=== PATIENT | male | born 1970 | race Caucasian/White ===

== ENCOUNTER 2016-10-21 12:40 | Emergency (ER) | payer MEDICAID ==
--- NOTE | 2016-10-21 12:58 | Emergency Department Record ---
History of Present Illness - General Chief complaint: Extremity Problem Stated complaint: RT THUMB/WRIST PAIN Time Seen by Provider: 10/21/16 12:55 Source: Patient Mode of Arrival: Ambulatory Limitations: No limitations - History of Present Illness Initial comments: 46 yo male presents with right thumb pain. He tripped over bricks his neighbor had placed in his yard. He thinks it bent back with the fall. He has pain with ROM and weight bearing. No redness or fevers. He is right handed Onset/Timin -: Week(s) Location: Right, Hand History of Same: No Severity scale (1-10): 8 Quality: Sharp Consistency: Intermittent Improves with: Immobilization, Rest Worsens with: Exertion Associated Symptoms: Denies other symptoms - Related Data Home Medications Medication Instructions Recorded Confirmed Last Taken Atorvastatin Calcium 40 mg PO QD tab 04/28/16 10/21/16 10/21/16 Carvedilol 6.25 mg PO BID tab 04/28/16 10/21/16 10/21/16 Previous Rx's Medication Instructions Recorded Furosemide [Lasix] 20 mg PO DAILY #90 tablet 05/10/16 Allergies Allergy/AdvReac Type Severity Reaction Status Date / Time Penicillins Allergy hives Verified 10/21/16 12:43 Travel Screening - Travel/Exposure Within Last 30 Days Have you traveled within the last 30 days?: No - Travel/Exposure Within Last Year Have you traveled outside the [place] in the last year?: No - Additonal Travel Details Have you been exposed to anyone with a communicable illness?: No - Travel Symptoms Symptom Screening: None Review of Systems Constitutional: Denies: Chills, Fever, Malaise Eyes: Denies: Eye discharge, Eye pain ENT: Denies: Congestion, Throat pain Respiratory: Denies: Cough Cardiovascular: Denies: Chest pain, Palpitations, Syncope Endocrine: Denies: Fatigue Gastrointestinal: Denies: Abdominal pain, Diarrhea, Nausea, Vomiting Genitourinary: Denies: Dysuria, Frequency Musculoskeletal: Reports: As per HPI, Arthralgia Skin: Denies: Bruising, Change in color, Rash Neurological: Denies: Headache Psychiatric: Denies: Anxiety Hematological/Lymphatic: Denies: Blood Clots, Easy bleeding, Easy bruising, Swollen glands Past Medical History - SOCIAL HISTORY Smoking Status: Never smoker Alcohol Use: None Drug Use: None - RESPIRATORY Hx Respiratory Disorders: No - CARDIOVASCULAR Hx Cardio Disorders: Yes Hx CHF: Yes Hx Hypertension: Yes Comment:: Cardiac myopathy - NEURO Hx Neuro Disorders: No - GI Hx GI Disorders: No - Hx Genitourinary Disorders: No - ENDOCRINE Hx Endocrine Disorders: Yes Hx Diabetes: Yes - MUSCULOSKELETAL Hx Musculoskeletal Disorders: No - PSYCH Hx Psych Problems: No - HEMATOLOGY/ONCOLOGY Hx Hematology/Oncology Disorders: No Family Medical History Any Significant Family History?: Yes Hx Diabetes: Mother Hx Heart Disease: Mother Hx Stroke: Mother Physical Exam - General General Appearance: Alert, Oriented x3, Cooperative, No acute distress Limitations: No limitations - Head Head exam: Atraumatic, Normocephalic, Normal inspection - Eye Eye exam: Normal appearance. negative: Conjunctival injection, Periorbital swelling - ENT ENT exam: Normal exam - Neck Neck exam: Normal inspection, Full ROM. negative: Tenderness - Respiratory Respiratory exam: Normal lung sounds bilaterally. negative: Respiratory distress - Cardiovascular Cardiovascular Exam: Regular rate, Normal rhythm, Normal heart sounds Peripheral Pulses: 2+: Radial (R) - Rectal Rectal exam: Deferred - exam: Deferred - Extremities Extremities exam: Normal inspection, Full ROM, Normal capillary refill, Tenderness Image of Hand: 1 - normal inspection, full ROM, tender proximal thumb and distal radius - Back Back exam: Denies: CVA tenderness (R), CVA tenderness (L), Muscle spasm, Paraspinal tenderness, Tenderness, Vertebral tenderness - Neurological Neurological exam: Alert, Normal gait, Oriented X3. negative: Motor sensory deficit - Psychiatric Psychiatric exam: Normal affect, Normal mood - Skin Skin exam: Dry, Intact, Normal color, Warm Course Vital Signs 10/21/16 12:50 Temperature 97.9 F Pulse Rate 61 Respiratory 20 Rate Blood Pressure 134/75 Pulse Ox 98 - Reevaluation(s) Reevaluation #1: XR ordered of the right hand for the pain after a fall about 10 days ago. 10/21/16 13:02 Reevaluation #2: The XR was read as no acute fracture or acute process He will be splinted and referred to his PCP for recheck 10/21/16 13:38 Disposition Disposition: Discharge Clinical Impression: Sprain of thumb Qualifiers: Encounter type: initial encounter Sprain of finger site: unspecified site Laterality: right Qualified Code(s): S63.601A - Unspecified sprain of right thumb, initial encounter Disposition: Home, Self-Care Condition: (1) Good Instructions: Finger Sprain (ED) Additional Instructions: Use the splint for support and comfort You will need to recheck with your doctor this week Forms: Patient Portal Access Time of Disposition: 13:39
--- NOTE | 2016-10-25 15:01 | RADIOLOGY REPORT ---
EXAM: RIGHT HAND, THREE VIEWS HISTORY: PATIENT STATES HE TRIPPED AND FELL ON OUTSTRETCHED RIGHT HAND TODAY. COMPLAINS OF RIGHT FIRST AND SECOND DIGIT PAIN THAT RADIATES INTO THE RIGHT WRIST. DENIES ANY PRIOR SURGERY. TECHNIQUE: Three views of the right hand were provided without comparison examinations. FINDINGS: There is no radiographic evidence of a fracture or dislocation of the right hand. No significant soft tissue abnormalities are identified. No radiopaque foreign bodies are identified. IMPRESSION: NO RADIOGRAPHIC EVIDENCE OF AN ACUTE PROCESS INVOLVING THE RIGHT HAND. JOB NUMBER: [id number] [facility]
== END 2016-10-21 13:55 | disposition home or self-care (01) ==
LOC: ER 12:40
DX: S63.601A Unspecified sprain of right thumb, initial encounter (principal); W18.09XA Striking against other object with subsequent fall, initial encounter; Y92.096 Garden or yard of other non-institutional residence as the place of occurrence of the external cause
CPT/HCPCS: 99283

== ENCOUNTER 2017-09-17 18:03 | Emergency (ER) | payer OTHER ==
[2017-09-17] MEDS ORDERED: BENZONATATE 100 MG CAPSULE PO ONE ×2 (18:05→19:08)
[2017-09-17] MEDS ORDERED: IPRATROPIUM/ALBUTEROL (0.5MG/3MG) NEB INH ONE (18:05)
--- NOTE | 2017-09-17 18:14 | Emergency Department Record ---
History of Present Illness - General Chief Complaint: Difficulty Breathing Stated Complaint: MAXIME/CHEMICAL EXPOSURE Time Seen by Provider: 09/17/17 18:05 Source: Patient, Family Mode of Arrival: Ambulatory Limitations: No limitations - History of Present Illness Initial Comments: 47 yo male presents with cough for the last 3 hours. He has been working in a moldy basement for the last few hours. He was mixing bleach to clean the area under an old freezer. He can not stop coughing. He is a former smoker. He denies asthma. He has had a recent bronchitis that is improving. He has a follow up appointment tomorrow with his doctor at the [facility]. MD Complaint: Cough -: Hour(s) (3) Severity: Moderate Quality: Other Consistency: Constant Improves With: Nothing Worsens With: Other (Bleach exposure) Context: Allergen exposure, Smoke/fume exposure Associated Symptoms: Cough Treatments Prior to Arrival: None - Related Data Previous Rx's Medication Instructions Recorded Furosemide [Lasix] 20 mg PO DAILY #90 tablet 05/10/16 Benzonatate [Tessalon] 100 mg PO Q6H #15 capsule 09/17/17 Allergies Allergy/AdvReac Type Severity Reaction Status Date / Time Penicillins Allergy hives Verified 09/17/17 18:11 Review of Systems Constitutional: Denies: Chills, Fever, Malaise, Weakness Eyes: Denies: Eye discharge, Eye pain, Photophobia, Vision change ENT: Reports: Congestion. Denies: Ear pain, Epistaxis, Throat pain Respiratory: Reports: Cough, Dyspnea. Denies: Hemoptysis, Stridor, Wheezes Cardiovascular: Denies: Chest pain, Palpitations, Syncope Endocrine: Denies: Fatigue Gastrointestinal: Denies: Abdominal pain, Diarrhea, Nausea, Vomiting Genitourinary: Denies: Dysuria, Frequency, Hematuria Musculoskeletal: Denies: Arthralgia, Back pain, Myalgia, Neck pain Skin: Denies: Bruising, Change in color, Rash Neurological: Denies: Confusion, Headache Psychiatric: Denies: Anxiety Hematological/Lymphatic: Denies: Blood Clots, Easy bleeding, Easy bruising, Swollen glands Past Medical History - SOCIAL HISTORY Smoking Status: Never smoker Drug Use: None - RESPIRATORY Hx Respiratory Disorders: No - CARDIOVASCULAR Hx Cardio Disorders: Yes Hx CHF: Yes Hx Hypertension: Yes Comment:: Cardiac myopathy - NEURO Hx Neuro Disorders: No - GI Hx GI Disorders: No - Hx Genitourinary Disorders: No - ENDOCRINE Hx Endocrine Disorders: Yes Hx Diabetes: Yes - MUSCULOSKELETAL Hx Musculoskeletal Disorders: No - PSYCH Hx Psych Problems: No - HEMATOLOGY/ONCOLOGY Hx Hematology/Oncology Disorders: No Family Medical History Hx Diabetes: Mother Hx Heart Disease: Mother Hx Stroke: Mother Physical Exam - General General Appearance: Alert, Oriented x3, Cooperative, No acute distress Limitations: No limitations - Head Head exam: Normal inspection - Eye Eye exam: Normal appearance, PERRL. negative: Conjunctival injection - ENT ENT exam: Normal exam, Mucous membranes moist, Normal external ear exam, Normal orophraynx, TM's normal bilaterally Ear exam: Normal external inspection Nasal Exam: Normal inspection. negative: Discharge, Sinus tenderness Mouth exam: Normal external inspection, Tongue normal Teeth exam: Normal inspection. negative: Dental caries Throat exam: Normal inspection. negative: Tonsillar erythema, Tonsillar exudate - Neck Neck exam: Normal inspection, Full ROM. negative: Tenderness - Respiratory Respiratory exam: Decreased breath sounds, Prolonged expiratory, Wheezes. negative: Accessory muscle use, Respiratory distress, Rhonchi, Stridor - Cardiovascular Cardiovascular Exam: Regular rate, Normal rhythm, Normal heart sounds Peripheral Pulses: 2+: Radial (R), Radial (L) - GI/Abdominal GI/Abdominal exam: Soft - Rectal Rectal exam: Deferred - exam: Deferred - Extremities Extremities exam: Normal inspection, Full ROM, Normal capillary refill. negative: Pedal edema, Tenderness - Back Back exam: Reports: Normal inspection - Neurological Neurological exam: Alert, Oriented X3 - Psychiatric Psychiatric exam: Normal affect, Normal mood - Skin Skin exam: Dry, Intact, Normal color, Warm. negative: Abrasion, Cyanosis, Erythema, Mottled Course - Reevaluation(s) Reevaluation #1: 09/17/17 18:48 The CBC was reviewed No acute changes The patient is doing well after the breathing treatment with mild cough No hypxia. 09/17/17 18:54 The patient is currently 96% and doing well on room air Will teach and dispense and inhaler Medical Decision Making - Lab Data Result diagrams: 09/17/17 18:17 09/17/17 18:17 Disposition Disposition: Discharge Clinical Impression: Inhalation of noxious substance Disposition: Home, Self-Care Condition: (1) Good Instructions: Bronchospasm (ED) Additional Instructions: Follow up as scheduled tomorrow with your doctor Return if short of breath or any new concerns. Take the Tessalon as directed Prescriptions: Benzonatate [Tessalon] 100 mg PO Q6H #15 capsule Forms: Patient Portal Access Time of Disposition: 18:51 Quality - Quality Measures Quality Measures: N/A - Blood Pressure Screening Does Patient Have Any of the Following: No Blood Pressure Classification: Hypertensive Reading Systolic Measurement: 120 Diastolic Measurement: 92 Screening for High Blood Pressure: < Pre-Hypertensive BP, F/U Documented > [ G8950] Pre-Hypertensive Follow-up Interventions: Referral to alternative/primary care provider.
[2017-09-17 18:37] LABS: BASO % 0.5 % (0-6); EOS % 2.6 % (0-6); GRAN % 76.6 % (47-80); HEMATOCRIT 48.5 % (42.0-52.0); HEMOGLOBIN 16.6 gm/dl (14.0-18.0); LYMPH % 13.9 % (16-45); MEAN CELL VOLUME 89.5 fl (81-97); MEAN CORPUSCULAR HEMOGLOBIN 30.6 pg (27-33); MEAN CORPUSCULAR HGB CONC 34.2 g/dl (32-36); MONO % 6.4 % (0-9); PLATELET COUNT 238 K/uL (130-400); RED BLOOD COUNT 5.42 M/uL (4.40-5.70); RED CELL DISTRIBUTION WIDTH 12.6 % (11.5-14.5)
[2017-09-17 18:53] LABS: CREATININE 1.5 mg/dL (0.7-1.2)
[2017-09-17] MEDS ORDERED: ALBUTEROL HFA 8 GM INHALER INH ONE (18:54)
[2017-09-17] MEDS: BENZONATATE 100 MG CAPSULE PO ONE (19:16)
== END 2017-09-17 19:20 | disposition home or self-care (01) ==
LOC: ER 18:03
DX: T54.91XA Toxic effect of unspecified corrosive substance, accidental (unintentional), initial encounter (principal); R05 Cough; R06.00 Dyspnea, unspecified; Z87.891 Personal history of nicotine dependence
CPT/HCPCS: 80048; 85025; 94640; 94664; 99283; 99284

== ENCOUNTER 2018-09-16 18:06 | Emergency (ER) | payer MEDICAID, SELFPAY ==
--- NOTE | 2018-09-16 18:22 | Emergency Department Record ---
History of Present Illness - General Chief Complaint: Abdominal Pain Stated Complaint: CONSTIPATION Time Seen by Provider: 09/16/18 18:08 Source: Patient Mode of Arrival: Ambulatory Limitations: No limitations - History of Present Illness Initial Comments: 48 yo male presents to ED for evaluation of increased abdominal pain and distention for the past 2 days. Patient reports a history of intermittent symptoms, but usually improves with stool softeners at home. Patient reports that his usually regimen has not helped, reports that he is unable to eat or drink fluids due to distension. Patient reports recent smaller "pencil-thin stools". Patient reports a history of hernia repair in 2017, denies other abdominal surgery. MD Complaint: Abdominal pain Onset/Timin -: Days(s) Location: Diffuse Severity: Moderate Quality: Aching Consistency: Constant Improves With: Nothing Worsens With: Nothing Associated Symptoms: Denies other symptoms - Related Data Home Medications Medication Instructions Recorded Confirmed Last Taken Tamsulosin HCl [Flomax] 1 cap PO DAILY 09/16/18 09/16/18 09/16/18 Previous Rx's Medication Instructions Recorded Furosemide [Lasix] 20 mg PO DAILY #90 tablet 05/10/16 Allergies Allergy/AdvReac Type Severity Reaction Status Date / Time Penicillins Allergy hives Verified 09/17/17 18:11 Review of Systems Constitutional: Denies: Chills, Fever, Malaise, Night sweats Eyes: Denies: Eye discharge, Eye pain, Photophobia ENT: Denies: Congestion, Dental pain, Ear pain Respiratory: Denies: Cough, Dyspnea, Hemoptysis Cardiovascular: Denies: Chest pain Endocrine: Denies: Fatigue, Heat or cold intolerance Gastrointestinal: Reports: Abdominal pain, Constipation. Denies: Nausea, Vomiting Genitourinary: Denies: Incontinence, Retention Musculoskeletal: Denies: Arthralgia, Back pain, Gout, Joint swelling Skin: Denies: Bruising, Change in color Neurological: Denies: Abnormal gait, Confusion, Headache, Tingling, Tremors Psychiatric: Denies: Anxiety Hematological/Lymphatic: Denies: Anemia, Blood Clots Past Medical History - SOCIAL HISTORY Smoking Status: Never smoker Drug Use: None - RESPIRATORY Hx Respiratory Disorders: No - CARDIOVASCULAR Hx Cardio Disorders: Yes Hx CHF: Yes Hx Hypertension: Yes Comment:: Cardiac myopathy - NEURO Hx Neuro Disorders: No - GI Hx GI Disorders: No - Hx Genitourinary Disorders: No - ENDOCRINE Hx Endocrine Disorders: Yes Hx Diabetes: Yes - MUSCULOSKELETAL Hx Musculoskeletal Disorders: No - PSYCH Hx Psych Problems: No - HEMATOLOGY/ONCOLOGY Hx Hematology/Oncology Disorders: No Family Medical History Hx Diabetes: Mother Hx Heart Disease: Mother Hx Stroke: Mother Physical Exam - General General Appearance: Alert, Oriented x3, Cooperative, Moderate distress Limitations: No limitations - Head Head exam: Atraumatic, Normocephalic, Normal inspection Head exam detail: negative: Abrasion, Contusion, Schuler's sign, General tenderness, Hematoma, Laceration - Eye Eye exam: Normal appearance. negative: Conjunctival injection, Periorbital swelling, Periorbital tenderness, Scleral icterus - ENT Ear exam: negative: Auricular hematoma, Auricular trauma Nasal Exam: negative: Active bleeding, Discharge, Dried blood, Foreign body Mouth exam: negative: Drooling, Laceration, Muffled voice, Tongue elevation - Neck Neck exam: Normal inspection. negative: Meningismus, Tenderness - Respiratory Respiratory exam: Normal lung sounds bilaterally. negative: Respiratory distress, Rhonchi, Stridor, Wheezes - Cardiovascular Cardiovascular Exam: Regular rate, Normal rhythm, Normal heart sounds - GI/Abdominal GI/Abdominal exam: Soft, Distended, Tenderness (Mild, diffuse TTP.). negative: Organomegaly, Pulsatile mass, Rebound, Rigid - Rectal Rectal exam: Deferred - exam: Deferred - Extremities Extremities exam: Normal inspection. negative: Calf tenderness, Pedal edema, Tenderness - Back Back exam: Denies: CVA tenderness (R), CVA tenderness (L) - Neurological Neurological exam: Alert, Normal gait, Oriented X3 - Psychiatric Psychiatric exam: Normal affect, Normal mood - Skin Skin exam: Normal color. negative: Abrasion Type of lesion: negative: abrasion Course - Reevaluation(s) Reevaluation #1: 09/16/18 19:08 Laboratory studies were reviewed, GFR 53 (at baseline), labs are otherwise grossly unremarkable for an acute process. Reevaluation #2: 09/16/18 20:54 CT Abdomen and Pelvis: No acute process Right inguinal hernia with mild extrusion of the bladder, no bowel 1.7 cm lesion left adrenal gland Patient was updated on all results, no significant constipation noted on CT imaging. Recommended increasing his oral intake tonight, OK to resume Miralax tomorrow. Patient appears stable for discharge at this time. Medical Decision Making - Lab Data Result diagrams: 09/16/18 18:44 09/16/18 18:44 Disposition Disposition: Discharge Clinical Impression: Abdominal pain Qualifiers: Abdominal location: generalized Qualified Code(s): R10.84 - Generalized abdominal pain Disposition: Home, Self-Care Condition: (2) Stable Instructions: Abdominal Pain (ED) Additional Instructions: Return to ED if your symptoms worsen or if you have any concerns. Follow-up with your family doctor in 3-5 days as directed. Follow-up with your urologist regarding small area of the bladder extending into a right inguinal hernia. Forms: Patient Portal Access Time of Disposition: 20:57 Quality - Quality Measures Quality Measures: N/A - Blood Pressure Screening Does Patient Have Any of the Following: No Blood Pressure Classification: Hypertensive Reading Systolic Measurement: 146 Diastolic Measurement: 95 Screening for High Blood Pressure: < First Hypertensive BP, F/U Documented > [ G8950] First Hypertensive Follow-up Interventions: Referral to alternative/primary care provider.
[2018-09-16] MEDS ORDERED: 0.9 % SODIUM CHLORIDE 1000ML 500 ML IV SCH (18:30)
[2018-09-16 18:47] LABS: EOS % 4.2 % (0-6); GRAN % 57.2 % (47-80); HEMATOCRIT 43.4 % (42.0-52.0); HEMOGLOBIN 15.3 gm/dl (14.0-18.0); LYMPH % 28.9 % (16-45); MEAN CELL VOLUME 88.8 fl (81-97); MEAN CORPUSCULAR HEMOGLOBIN 31.3 pg (27-33); MEAN CORPUSCULAR HGB CONC 35.3 g/dl (32-36); MEAN PLATELET VOLUME 9.7 fl (7.4-10.4); MONO % 8.7 % (0-9); PLATELET COUNT 208 K/uL (130-400); RED BLOOD COUNT 4.89 M/uL (4.40-5.70); RED CELL DISTRIBUTION WIDTH 12.9 % (11.5-14.5); WHITE BLOOD COUNT W/O DIFF 7.8 K/uL (4.2-12.2)
[2018-09-16 19:02] LABS: BILIRUBIN,TOTAL 0.9 mg/dL (0.2-1.0); CREATININE 1.5 mg/dL (0.7-1.2); TOTAL PROTEIN 7.8 g/dL (6.6-8.7)
[2018-09-16 19:07] LABS: ALB/GLOB RATIO 1.4 (1.1-1.8); ALBUMIN 4.5 g/dL (4.0-5.0)
--- NOTE | 2018-09-17 12:33 | CT SCAN REPORT ---
EXAM: EMERGENCY CT OF THE ABDOMEN AND PELVIS WITH CONTRAST HISTORY: DISTENTION AND ABDOMINAL PAIN, INCREASED BLOATING. PRIOR ABDOMINAL HERNIA SURGERY. TECHNIQUE: Axial CT scan of the abdomen and pelvis was performed following the intravenous administration of iodated contrast medial. No oral contrast utilized at the referring physician's request. Comparison: None. FINDINGS: No calcified gallstones seen within the gallbladder. No definite hepatic, splenic, right adrenal, or pancreatic mass identified. There is a small left adrenal nodule about 13 x 17 mm in size, nonspecific. Comparison with prior CT scans that include the left adrenal or follow-up MRI of the adrenals could be obtained for further evaluation. No definite renal mass identified. Right inguinal hernia containing a knuckle of the urinary bladder, but no bowel. There is probably a TUR defect in the prostate. Evaluation of the bowel very limited without oral contrast, however, I believe the appendix is visualized as a normal caliber structure with no appendicitis evident. No free intraperitoneal air or free intraperitoneal fluid evident. Very small periumbilical anterior abdominal wall hernia containing adipose tissue, but no bowel. prominent spurring in the lower thoracic and lumbar spine. There is a small amount of pericardial fluid anteriorly. IMPRESSION: 1. SMALL LEFT ADRENAL NODULE ABOUT 1.7 CM IN MAXIMUM SIZE, INDETERMINATE. FOLLOW-UP DESCRIBED ABOVE SUGGESTED. 2. RIGHT INGUINAL HERNIA CONTAINING A KNUCKLE OF THE URINARY BLADDER, BUT NO BOWEL. 3. PROBABLE TUR DEFECT IN THE PROSTATE. 4. THE APPENDIX APPEARS NEGATIVE. NO FREE AIR OR FREE FLUID EVIDENT. 5. SMALL PERIUMBILICAL ANTERIOR ABDOMINAL WALL HERNIA CONTAINING ADIPOSE TISSUE. JOB NUMBER: [id number] [facility]
== END 2018-09-16 21:08 | disposition home or self-care (01) ==
LOC: ER 18:06
DX: R10.84 Generalized abdominal pain (principal); K40.90 Unilateral inguinal hernia, without obstruction or gangrene, not specified as recurrent; I10 Essential (primary) hypertension; I50.9 Heart failure, unspecified
CPT/HCPCS: 99284 ×2; 85025; 80053; 74177; Q9967; J7030

== ENCOUNTER 2018-10-05 18:18 | Emergency (ER) | payer MEDICAID, SELFPAY ==
[2018-10-05] MEDS ORDERED: SODIUM CHLORIDE 0.9% 500 ML IV ONE (18:25)
--- NOTE | 2018-10-05 18:28 | Emergency Department Record ---
History of Present Illness - General Stated Complaint: HIGH BLOOD SUGAR 473 Time Seen by Provider: 10/05/18 18:23 Source: Patient, Family Mode of Arrival: Ambulatory Limitations: No limitations - History of Present Illness Initial comments: 48 yo male presents with a concern about his elevated blood sugar. He has a history of diabetes. He states his blood sugar was in the 400's today. He reports early in the week he was diagnosed with a bronchitis. He was started on antibiotics and steroids. Normal his glucose remains under 200 with occasional spikes. His cough is better and he does not have any other symptoms. He took 2 of his Glipizide 1 hour ago. PMHx: GERD, Asthma, Fibromyalgia, Migaine, Chronic Pain, Thrombocytopenia, Tremors, Fall/TBI with intracranial hemorrhage Non smoker No alcohol -: Days(s) Location: Other Radiation: Other Quality: Other Improves with: Medication Worsens with: Other (Recent steroids) Associated Symptoms: Cough (once week) - [place] Coma Scale Eye Response: (4) Open spontaneously Motor Response: (6) Obeys commands Verbal Response: (5) Oriented [place] Total: 15 - Related Data Home Medications Medication Instructions Recorded Confirmed Last Taken Clarithromycin 10/05/18 10/05/18 Glipizide 1 tab PO BID 10/05/18 10/05/18 10/05/18 Prednisone [Prednisone 20Mg] 10/05/18 10/05/18 Previous Rx's Medication Instructions Recorded Furosemide [Lasix] 20 mg PO DAILY #90 tablet 05/10/16 Allergies Allergy/AdvReac Type Severity Reaction Status Date / Time Penicillins Allergy hives Verified 10/05/18 18:23 Review of Systems Constitutional: Denies: Chills, Fever, Malaise, Weakness Eyes: Denies: Eye discharge ENT: Denies: Congestion Respiratory: Reports: As per HPI, Cough. Denies: Dyspnea, Hemoptysis, Wheezes Cardiovascular: Denies: Chest pain, Palpitations, Syncope Endocrine: Denies: Fatigue Gastrointestinal: Denies: Abdominal pain, Diarrhea, Nausea, Vomiting Genitourinary: Denies: Dysuria, Frequency, Hematuria Musculoskeletal: Denies: Arthralgia, Joint swelling, Myalgia Skin: Denies: Bruising, Change in color, Rash Neurological: Denies: Headache Psychiatric: Denies: Anxiety Hematological/Lymphatic: Denies: Easy bleeding, Easy bruising Past Medical History - SOCIAL HISTORY Smoking Status: Never smoker Drug Use: None - RESPIRATORY Hx Respiratory Disorders: No - CARDIOVASCULAR Hx Cardio Disorders: Yes Hx CHF: Yes Hx Hypertension: Yes Comment:: Cardiac myopathy - NEURO Hx Neuro Disorders: No - GI Hx GI Disorders: No - Hx Genitourinary Disorders: No - ENDOCRINE Hx Endocrine Disorders: Yes Hx Diabetes: Yes - MUSCULOSKELETAL Hx Musculoskeletal Disorders: No - PSYCH Hx Psych Problems: No - HEMATOLOGY/ONCOLOGY Hx Hematology/Oncology Disorders: No Family Medical History Hx Diabetes: Mother Hx Heart Disease: Mother Hx Stroke: Mother Physical Exam - General General Appearance: Alert, Oriented x3, Cooperative, No acute distress Limitations: No limitations - Head Head exam: Atraumatic, Normal inspection - Eye Eye exam: Normal appearance. negative: Conjunctival injection - ENT ENT exam: Normal exam Ear exam: Normal external inspection Nasal Exam: Normal inspection Mouth exam: Normal external inspection Teeth exam: Normal inspection Throat exam: Normal inspection - Neck Neck exam: Normal inspection, Full ROM. negative: Tenderness - Respiratory Respiratory exam: Normal lung sounds bilaterally. negative: Respiratory distress - Cardiovascular Cardiovascular Exam: Regular rate, Normal rhythm, Normal heart sounds - GI/Abdominal GI/Abdominal exam: Soft. negative: Tenderness - Rectal Rectal exam: Deferred - exam: Deferred - Extremities Extremities exam: Normal inspection - Back Back exam: Denies: CVA tenderness (R), CVA tenderness (L) - Neurological Neurological exam: Alert, Oriented X3 - Psychiatric Psychiatric exam: Normal affect, Normal mood - Skin Skin exam: Dry, Intact, Normal color, Warm Course - Reevaluation(s) Reevaluation #1: 10/05/18 18:32 Accu check 395 10/05/18 19:24 The labs were reviewed No DKA with normal pH, negative acetones, normal AG and HCO3 He has chronic renal insufficiency with CR of 1.7 most recent was 1.6 A1c is 7.2 at his baseline. 10/05/18 21:16 Recheck is 178 DC home He was instructed to hold his steroid and resume normal dosing of medications. Medical Decision Making - Lab Data Result diagrams: 10/05/18 18:45 10/05/18 18:45 Disposition Disposition: Discharge Clinical Impression: Hyperglycemia Disposition: Home, Self-Care Condition: (1) Good Instructions: Type 2 Diabetes in Adults (ED) Additional Instructions: Stop the steroids Call your doctor on Sunday if your sugars are still elevated Time of Disposition: 21:16 Quality - Quality Measures Quality Measures: N/A - Blood Pressure Screening Does Patient Have Any of the Following: Active Dx of HTN Blood Pressure Classification: Hypertensive Reading Systolic Measurement: 124 Diastolic Measurement: 93 Screening for High Blood Pressure: Patient Exclusion, Hx of HTN [G9744]
[2018-10-05 18:58] LABS: HEMATOCRIT 41.4 % (42.0-52.0); HEMOGLOBIN 14.3 gm/dl (14.0-18.0); MEAN CELL VOLUME 90.6 fl (81-97); MEAN CORPUSCULAR HEMOGLOBIN 31.3 pg (27-33); MEAN CORPUSCULAR HGB CONC 34.5 g/dl (32-36); PLATELET COUNT 212 K/uL (130-400); RED BLOOD COUNT 4.57 M/uL (4.40-5.70); RED CELL DISTRIBUTION WIDTH 12.5 % (11.5-14.5); WHITE BLOOD COUNT W/O DIFF 5.8 K/uL (4.2-12.2)
[2018-10-05 19:08] LABS: URINE APPEARANCE CLEAR; URINE BILIRUBIN NEGATIVE (NEGATIVE); URINE BLOOD NEGATIVE (NEGATIVE); URINE COLOR YELLOW; URINE KETONE NEGATIVE (NEGATIVE); URINE LEUKOCYTE ESTERASE NEGATIVE (NEGATIVE); URINE NITRITE NEGATIVE (NEGATIVE); URINE PROTEIN NEGATIVE (NEGATIVE); URINE UROBILINOGEN 0.2 E.U./dL (0.20 - 1.00)
[2018-10-05 19:11] LABS: URINE GLUCOSE (UA) >=1000 mg/dL (NEGATIVE)
[2018-10-05 19:12] LABS: BLOOD UREA NITROGEN 45 mg/dL (6-20); CREATININE 1.7 mg/dL (0.7-1.2); EST GLOMERULAR FILTRATION RATE 46 mL/min
[2018-10-05 19:13] LABS: TOTAL PROTEIN 7.5 g/dL (6.6-8.7)
[2018-10-05 19:14] LABS: ACETONE,SERUM NEGATIVE (NEGATIVE); PLATELET ESTIMATE NORMAL (NORMAL)
[2018-10-05 19:15] LABS: GLUCOSE,RANDOM 404 mg/dL (74-109)
[2018-10-05 19:17] LABS: ALB/GLOB RATIO 1.3 (1.1-1.8); ALBUMIN 4.2 g/dL (4.0-5.0); ALKALINE PHOSPHATASE 75 U/L (55-149); ALT/SGPT 42 U/L (<41); AST/SGOT 22 U/L (10.0-50.0)
[2018-10-05] MEDS ORDERED: HUMULIN R 100 UNIT/ML VIAL SQ ONE (19:53)
== END 2018-10-05 21:22 | disposition home or self-care (01) ==
LOC: ER 18:18
DX: E09.65 Drug or chemical induced diabetes mellitus with hyperglycemia (principal); T38.0X5A Adverse effect of glucocorticoids and synthetic analogues, initial encounter; R05 Cough; Z79.84 Long term (current) use of oral hypoglycemic drugs; I10 Essential (primary) hypertension; I50.9 Heart failure, unspecified
CPT/HCPCS: 36416; 80053; 81003; 82009; 82800; 82948; 83036; 85027; 96372; 99284

== ENCOUNTER 2018-11-21 15:03 | Observation (INO) | payer MEDICAID, SELFPAY ==
--- NOTE | 2018-11-21 15:09 | Emergency Department Record ---
History of Present Illness - General Chief Complaint: Chest Pain Stated Complaint: CHEST PAIN Time Seen by Provider: 11/21/18 15:04 Source: Patient Mode of Arrival: Ambulatory Limitations: No limitations - History of Present Illness Initial Comments: 48 yo male presents with one week of intermittent discomfort in the chest with palpitations. He reports a history of cardiomyopathy. This was diagnosed about 10 years ago. His last ECHO was about 2 years ago. He has had a cath in the past but no stents. His rotoprinter is Dr Hannah. The symptoms have been coming and going. He does have a history of "extra beats". His chest feels tight at times and then at times it feels briefly like a "jolt". He is having palpitations at times. No leg pain or calf pain. No nausea or sweating. MD Complaint: Chest pain, Other (Palpitations) -: Week(s) (1) Onset: During rest Pain Location: Substernal Pain Radiation: None Severity: Moderate Quality: Aching, Heaviness, Sharp Consistency: Intermittent Improves With: Nothing Worsens With: Nothing Context: Other (Hx of cardiomyopathy) Anginal Symptoms: Other Other Symptoms: Other - Related Data Previous Rx's Medication Instructions Recorded Furosemide [Lasix] 20 mg PO DAILY #90 tablet 05/10/16 Allergies Allergy/AdvReac Type Severity Reaction Status Date / Time Penicillins Allergy hives Verified 10/05/18 18:23 Review of Systems Constitutional: Denies: Chills, Fever, Malaise, Weakness Eyes: Denies: Eye discharge, Eye pain, Photophobia, Vision change ENT: Denies: Congestion, Throat pain Respiratory: Reports: Dyspnea. Denies: Cough, Hemoptysis, Stridor, Wheezes Cardiovascular: Reports: Chest pain, Palpitations. Denies: Edema, Syncope Endocrine: Denies: Fatigue, Polydipsia, Polyuria Gastrointestinal: Denies: Abdominal pain, Diarrhea, Nausea, Vomiting Genitourinary: Denies: Dysuria, Frequency, Hematuria Musculoskeletal: Denies: Arthralgia, Back pain, Joint swelling, Myalgia Skin: Denies: Bruising, Change in color, Rash Neurological: Denies: Confusion, Headache, Weakness Psychiatric: Denies: Anxiety Hematological/Lymphatic: Denies: Easy bleeding, Easy bruising Past Medical History - SOCIAL HISTORY Smoking Status: Never smoker Drug Use: None - RESPIRATORY Hx Respiratory Disorders: No - CARDIOVASCULAR Hx Cardio Disorders: Yes Hx CHF: Yes Hx Hypertension: Yes Comment:: Cardiac myopathy - NEURO Hx Neuro Disorders: No - GI Hx GI Disorders: No - Hx Genitourinary Disorders: No - ENDOCRINE Hx Endocrine Disorders: Yes Hx Diabetes: Yes - MUSCULOSKELETAL Hx Musculoskeletal Disorders: No - PSYCH Hx Psych Problems: No - HEMATOLOGY/ONCOLOGY Hx Hematology/Oncology Disorders: No Family Medical History Hx Diabetes: Mother Hx Heart Disease: Mother Hx Stroke: Mother Physical Exam - General General Appearance: Alert, Oriented x3, Cooperative, No acute distress Limitations: No limitations - Head Head exam: Atraumatic, Normal inspection - Eye Eye exam: Normal appearance, PERRL. negative: Conjunctival injection, Scleral icterus - ENT ENT exam: Normal exam, Mucous membranes moist Ear exam: Normal external inspection Nasal Exam: Normal inspection Mouth exam: Normal external inspection - Neck Neck exam: Normal inspection, Full ROM. negative: Tenderness - Respiratory Respiratory exam: Normal lung sounds bilaterally. negative: Respiratory distress, Rhonchi, Stridor, Wheezes - Cardiovascular Cardiovascular Exam: Regular rate, Normal rhythm, Normal heart sounds Peripheral Pulses: 2+: Radial (R), Radial (L) - GI/Abdominal GI/Abdominal exam: Soft. negative: Tenderness - Rectal Rectal exam: Deferred - exam: Deferred - Extremities Extremities exam: Normal inspection, Full ROM, Normal capillary refill. negative: Pedal edema, Tenderness - Back Back exam: Denies: CVA tenderness (R), CVA tenderness (L) - Neurological Neurological exam: Alert, Oriented X3 - Psychiatric Psychiatric exam: Normal affect, Normal mood. negative: Agitated, Anxious - Skin Skin exam: Dry, Intact, Normal color, Warm. negative: Cyanosis, Diaphoretic, Erythema, Mottled Course - Reevaluation(s) Reevaluation #1: EKG #1: 15:02 Rate: 70 Rhythm: sinus with ventricular bigeminy [place]: normal Intervals: normal ST segments: normal Prior: 05/10/16 11/21/18 15:10 11/21/18 15:41 The CR is 1.6 (his baseline) The Troponin is normal at 0.01 Medical Decision Making - Lab Data Result diagrams: 11/21/18 15:13 11/21/18 15:13 Disposition Disposition: Admit Clinical Impression: Chest pain, Palpitations Disposition: Still a Patient at [facility] Decision to Admit: Admit from ER Decision to Admit Date: 11/21/18 Decision to Admit Time: 16:10 Condition: (1) Good Time of Disposition: 16:10 Quality - Quality Measures Quality Measures: N/A - Blood Pressure Screening Does Patient Have Any of the Following: Active Dx of HTN Blood Pressure Classification: Pre-Hypertensive BP Reading Systolic Measurement: 131 Diastolic Measurement: 81 Screening for High Blood Pressure: Patient Exclusion, Hx of HTN [G9744]
[2018-11-21 15:21] LABS: BASO % 0.9 % (0-6); EOS % 4.7 % (0-6); GRAN % 62.3 % (47-80); HEMATOCRIT 47.7 % (42.0-52.0); HEMOGLOBIN 16.4 gm/dl (14.0-18.0); MEAN CELL VOLUME 89.8 fl (81-97); MEAN CORPUSCULAR HEMOGLOBIN 30.9 pg (27-33); MEAN CORPUSCULAR HGB CONC 34.4 g/dl (32-36); MEAN PLATELET VOLUME 9.8 fl (7.4-10.4); MONO % 8.1 % (0-9); PLATELET COUNT 224 K/uL (130-400); RED BLOOD COUNT 5.31 M/uL (4.40-5.70); RED CELL DISTRIBUTION WIDTH 12.6 % (11.5-14.5); WHITE BLOOD COUNT W/O DIFF 7.7 K/uL (4.2-12.2)
[2018-11-21 15:29] LABS: BLOOD UREA NITROGEN 36 mg/dL (6-20); CREATININE 1.6 mg/dL (0.7-1.2); EST GLOMERULAR FILTRATION RATE 49 mL/min
[2018-11-21 15:30] LABS: TOTAL PROTEIN 8.3 g/dL (6.6-8.7)
[2018-11-21 15:32] LABS: GLUCOSE,RANDOM 207 mg/dL (74-109)
[2018-11-21 15:33] LABS: INR 1.1; PARTIAL THROMBOPLASTIN TIME 27.8 SECONDS (24.5-39.1); PROTHROMBIN TIME (PATIENT) 10.7 SECONDS (9.5-12.1)
[2018-11-21 15:35] LABS: ALB/GLOB RATIO 1.3 (1.1-1.8); ALBUMIN 4.7 g/dL (4.0-5.0); ALKALINE PHOSPHATASE 78 U/L (40-129); ALT/SGPT 35 U/L (<41); AST/SGOT 18 U/L (10.0-50.0)
[2018-11-21] MEDS ORDERED: ASPIRIN 81 MG CHEWABLE TABLET PO ONE (15:42)
[2018-11-21] MEDS ORDERED: MAGNESIUM SULFATE 16 MEQ in 0.9 % SODIUM CHLORIDE 100ML 100 ML IV ONE (16:17)
[2018-11-21] MEDS ORDERED: MECLIZINE 25 MG TABLET PO PRN (17:51)
[2018-11-21] MEDS ORDERED: RIVAROXABAN 20 MG TABLET PO SCH (17:51)
[2018-11-21] MEDS ORDERED: 0.9 % SODIUM CHLORIDE 1000ML 1,000 ML IV PRN (17:51)
[2018-11-21] MEDS: FLUTICASONE PROPIONATE 50MCG NASAL 16 GM BTL SCH (21:16)
[2018-11-21] MEDS: CARVEDILOL 12.5 MG TABLET PO SCH (21:18)
[2018-11-21] MEDS: LISINOPRIL 20 MG TABLET PO SCH (21:19)
[2018-11-21] MEDS ORDERED: TAMSULOSIN HCL 0.4 MG CAP.ER.24H PO SCH (22:00)
[2018-11-21] MEDS ORDERED: GLIPIZIDE 5 MG TABLET PO SCH (22:00)
[2018-11-21] MEDS ORDERED: ATORVASTATIN 20 MG TABLET PO SCH (22:00)
--- NOTE | 2018-11-22 07:44 | RADIOLOGY REPORT ---
EXAM: CHEST, TWO VIEWS HISTORY: CHEST PAIN. TECHNIQUE: Upright PA and lateral views of the chest were obtained. Comparison: Two view chest radiographic examination dated 08/15/17. FINDINGS: The heart is not enlarged and the pulmonary vasculature is nondilated. No lung consolidation is seen. Subtle nodular opacities project at the lateral mid to lower left hemithorax level measuring 9 mm and 8 mm respectively. Lung nodules are not excluded. No costophrenic angle blunting or pneumothorax. IMPRESSION: 1. NO CONVINCING EVIDENCE OF ACUTE CARDIOPULMONARY DISEASE. 2. SUBTLE NODULAR OPACITIES ARE SEEN ON THE FRONTAL VIEW PROJECTING AT THE LATERAL MID LEFT HEMITHORAX LEVEL MEASURING 8 MM AND 9 MM RESPECTIVELY. WHILE THESE MAY JUST RELATE TO SUPERIMPOSITION OF NORMAL STRUCTURES, INDETERMINATE LUNG NODULES ARE NOT EXCLUDED. JOB NUMBER: [id number] MTDD
--- NOTE | 2018-11-22 09:27 | History & Physical ---
History of Present Illness - Date of Service Date of Service for History & Physical: 11/22/18 - History of Present Illness Admitting Diagnosis: chest pain with palpitations History of Present Illness: 48 year old male patient presents to ED with complaints of intermittent substernal chest pain and palpitations. Patient states he is currently a patient of Dr. Hannah and has been undergoing a workup for similar symptoms. Patient states he was instructed to cut out caffeine and has noted slight improvement in the palpitations since doing that. Patient reports a history of cardiomyopathy that was diagnosed 10 years ago. Patient's last ECHO was 2 years ago. He has also had a cardiac cath with no stent placement. Patient reports occasional shortness of breath with the palpitations. Denies any radiation of the pain, nausea, vomiting, or sweating. Patient also reports a history of a CVA (currently on xarelto), ex-smoker, HTN, hyperlipidemia, inguinal hernia repair, and a recent TURP 2 weeks ago. PCP: Dr. Nelsy Brown ED Course: EKG - Rate 70, sinus with ventricular bigeminy Chest x-ray Cr 1.6 (normal to his baseline), troponin 0.01 11/22/18: Patient A&O x 4, sitting comfortably in chair. Patient reports mild substernal pressure 2/10 at this time. Denies any radiation of the pain. States he has continued to have intermittent palpitations since admission with no events noted on telemetry. Serial troponins negative. Cardiology consult with Dr. Hannah who is planning to complete ECHO outpatient and follow-up with the patient in the office next week. 2 Travel Screening - Travel/Exposure Within Last 30 Days Have you traveled within the last 30 days?: No - Travel/Exposure Within Last Year Have you traveled outside the [place] in the last year?: No - Additonal Travel Details Have you been exposed to anyone with a communicable illness?: No - Travel Symptoms Symptom Screening: None Review of Systems Reviewed: No additional complaints except as noted below Constitutional: Denies: Chills, Fever, Malaise, Weakness Eyes: Denies: Eye discharge, Eye pain, Photophobia, Vision change ENT: Denies: Congestion, Throat pain Respiratory: Reports: Dyspnea. Denies: Cough, Hemoptysis, Stridor, Wheezes Cardiovascular: Reports: Chest pain, Palpitations. Denies: Edema, Syncope Endocrine: Denies: Fatigue, Polydipsia, Polyuria Gastrointestinal: Denies: Abdominal pain, Diarrhea, Nausea, Vomiting Genitourinary: Denies: Dysuria, Frequency, Hematuria Musculoskeletal: Denies: Arthralgia, Back pain, Joint swelling, Myalgia Skin: Denies: Bruising, Change in color, Rash Neurological: Denies: Confusion, Headache, Weakness Psychiatric: Denies: Anxiety Hematological/Lymphatic: Denies: Easy bleeding, Easy bruising Past Medical History - SOCIAL HISTORY Smoking Status: Never smoker Drug Use: None - RESPIRATORY Hx Respiratory Disorders: No - CARDIOVASCULAR Hx Cardio Disorders: Yes Hx CHF: Yes Hx Hypertension: Yes Comment:: Cardiac myopathy - NEURO Hx Neuro Disorders: No - GI Hx GI Disorders: No - Hx Genitourinary Disorders: No - ENDOCRINE Hx Endocrine Disorders: Yes Hx Diabetes: Yes - MUSCULOSKELETAL Hx Musculoskeletal Disorders: No - PSYCH Hx Psych Problems: No - HEMATOLOGY/ONCOLOGY Hx Hematology/Oncology Disorders: No Family Medical History Hx Diabetes: Mother Hx Heart Disease: Mother Hx Stroke: Mother H&P Meds/Allergies - Allergies Allergies: Allergies Allergy/AdvReac Type Severity Reaction Status Date / Time Penicillins Allergy hives Verified 10/05/18 18:23 - Home Medications Home Medications Medication Instructions Recorded Confirmed Last Taken Meclizine HCl 25 mg PO BID 11/21/18 11/21/18 11/20/18 Previous Rx's Medication Instructions Recorded Furosemide [Lasix] 20 mg PO DAILY #90 tablet 05/10/16 - Active Medications Active Medications: Current Medications Atorvastatin Calcium (Lipitor) 40 mg PO QHS [facility] Carvedilol (Coreg) 12.5 mg PO BID [facility] Last Admin: 11/21/18 21:18 Dose: 12.5 mg Fluticasone Propionate (Flonase) 1 spray NA BID [facility] Last Admin: 11/21/18 21:16 Dose: 1 spray Furosemide (Lasix) 20 mg PO DAILY [facility] Glipizide (Glucotrol Xl) 10 mg PO BID [facility] Sodium Chloride () 1,000 mls @ 83 mls/hr IV .Q12H3M PRN PRN Reason: LARGE VOLUME IV Last Admin: 11/22/18 06:20 Dose: 83 mls/hr Lisinopril (Zestril) 20 mg PO BID [facility] Last Admin: 11/21/18 21:19 Dose: Not Given Meclizine HCl (Antivert) 25 mg PO Q12H PRN PRN Reason: DIZZINESS Rivaroxaban (Xarelto) 20 mg PO 1730 ANNE Tamsulosin HCl (Flomax) 0.4 mg PO QHS [facility] Physical Exam - Vital Signs Vital Signs: Vital Signs - Last 24 Hrs Temp Pulse Pulse Pulse Resp BP BP 11/21/18 20:53 97.7 F 73 20 136/80 11/21/18 20:09 69 11/21/18 17:43 63 16 131/81 11/21/18 17:30 97.8 F 69 18 132/78 11/21/18 16:42 71 16 134/67 11/21/18 15:49 71 16 146/88 11/21/18 15:03 98.1 F 77 16 141/92 Pulse Ox 11/21/18 20:53 97 11/21/18 20:09 11/21/18 17:43 96 11/21/18 17:30 99 11/21/18 16:42 96 11/21/18 15:49 97 11/21/18 15:03 98 - General General Appearance: Alert, Oriented x3, Cooperative, No acute distress Limitations: No limitations - Head Head exam: Atraumatic, Normal inspection - Eye Eye exam: Normal appearance, PERRL. negative: Conjunctival injection, Scleral icterus - ENT ENT exam: Normal exam, Mucous membranes moist Ear exam: Normal external inspection Nasal Exam: Normal inspection Mouth exam: Normal external inspection - Neck Neck exam: Normal inspection, Full ROM. negative: Tenderness - Respiratory Respiratory exam: Normal lung sounds bilaterally. negative: Respiratory distress, Rhonchi, Stridor, Wheezes - Cardiovascular Cardiovascular Exam: Regular rate, Normal rhythm, Normal heart sounds Peripheral Pulses: 2+: Radial (R), Radial (L) - GI/Abdominal GI/Abdominal exam: Soft. negative: Tenderness - Rectal Rectal exam: Deferred - exam: Deferred - Extremities Extremities exam: Normal inspection, Full ROM, Normal capillary refill. negative: Pedal edema, Tenderness - Back Back exam: Denies: CVA tenderness (R), CVA tenderness (L) - Neurological Neurological exam: Alert, Oriented X3 - Psychiatric Psychiatric exam: Normal affect, Normal mood. negative: Agitated, Anxious - Skin Skin exam: Dry, Intact, Normal color, Warm. negative: Cyanosis, Diaphoretic, Erythema, Mottled Results - Labs Result Diagrams: 11/21/18 15:13 11/21/18 15:13 Labs Last 24 Hours: Laboratory Results - last 24 hr 11/21/18 11/21/18 11/21/18 15:13 15:13 15:13 WBC 7.7 RBC 5.31 Hgb 16.4 Hct 47.7 MCV 89.8 MCH 30.9 MCHC 34.4 RDW 12.6 Plt Count 224 MPV 9.8 Gran % 62.3 Lymphocytes % 24.0 Monocytes % 8.1 Eosinophils % 4.7 Basophils % 0.9 PT 10.7 INR 1.1 APTT 27.8 Sodium 139 Potassium 4.2 Chloride 96 L Carbon Dioxide 29.0 Anion Gap 14.0 BUN 36 H Creatinine 1.6 H Estimated GFR 49 POC Glucose Random Glucose 207 H Calcium 11.0 H Magnesium Total Bilirubin 0.60 AST 18 ALT 35 Alkaline Phosphatase 78 Troponin T < 0.010 Total Protein 8.3 Albumin 4.7 Globulin 3.6 Albumin/Globulin Ratio 1.3 11/21/18 11/21/18 11/21/18 15:13 21:57 22:15 WBC RBC Hgb Hct MCV MCH MCHC RDW Plt Count MPV Gran % Lymphocytes % Monocytes % Eosinophils % Basophils % PT INR APTT Sodium Potassium Chloride Carbon Dioxide Anion Gap BUN Creatinine Estimated GFR POC Glucose 198 H Random Glucose Calcium Magnesium 1.7 Total Bilirubin AST ALT Alkaline Phosphatase Troponin T < 0.010 Total Protein Albumin Globulin Albumin/Globulin Ratio 11/22/18 06:14 WBC RBC Hgb Hct MCV MCH MCHC RDW Plt Count MPV Gran % Lymphocytes % Monocytes % Eosinophils % Basophils % PT INR APTT Sodium Potassium Chloride Carbon Dioxide Anion Gap BUN Creatinine Estimated GFR POC Glucose Random Glucose Calcium Magnesium Total Bilirubin AST ALT Alkaline Phosphatase Troponin T < 0.010 Total Protein Albumin Globulin Albumin/Globulin Ratio VTE H&P Assessment - Risk for VTE Risk for VTE: No Risk Level: Low Risk Assessment Date: 11/22/18 Risk Assessment Time: 11:08 VTE Orders Placed or Will Be Placed: No VTE Reason for No Prophylaxis: Contraindicated (currently on xarelto) Plan - Detailed Diagnosis and Plan (1) Chest pain Current Visit: Yes Status: Acute Base Code: R07.9 - CHEST PAIN, UNSPECIFIED Comment: 11/22/18: Patient reports intermittent substernal chest pain with palpitations -Currently seeing Dr. Hannah -Negative troponin in ER -EKG unchanged -Chest x-ray negative -Cardiac montior -VS WNL (2) Palpitations Current Visit: Yes Status: Acute Base Code: R00.2 - PALPITATIONS Comment: 11/22/18: -surveillance system monitor -Cardiology consult -Troponin negative x 3 (3) Contraindication to venous thromboembolism (VTE) prophylaxis Current Visit: Yes Status: Acute Base Code: Z53.09 - PROC/TRTMT NOT CARRIED OUT BECAUSE OF CONTRAINDICATION Comment: 11/22/18: Moderate risk due to hospitalization -Patient to continue home dose of Xarelto (4) Full code status Current Visit: Yes Status: Acute Base Code: Z78.9 - OTHER SPECIFIED HEALTH STATUS Comment: 11/22/18: Patient a full code this admission
[2018-11-22] MEDS: CARVEDILOL 12.5 MG TABLET PO SCH (09:35)
[2018-11-22] MEDS: FLUTICASONE PROPIONATE 50MCG NASAL 16 GM BTL SCH (09:36)
[2018-11-22] MEDS: LISINOPRIL 20 MG TABLET PO SCH ×2 (09:36→09:40)
[2018-11-22] MEDS ORDERED: TAMSULOSIN HCL 0.4 MG CAP.ER.24H PO SCH ×2 (10:00→22:00)
[2018-11-22] MEDS ORDERED: ATORVASTATIN 20 MG TABLET PO SCH ×2 (10:00→22:00)
[2018-11-22] MEDS ORDERED: FUROSEMIDE 20 MG TABLET PO SCH (10:00)
[2018-11-22] MEDS ORDERED: GLIPIZIDE XL 5 MG TABLET PO SCH (10:00)
--- NOTE | 2018-11-22 11:11 | Discharge Summary ---
Providers Discharge Summary Date: 11/22/18 Date of admission: 11/21/18 17:26 Expected Date of Discharge: 11/22/18 Attending physician: AUDREY HOGAN Primary care physician: Dr. Nelsy Brown Consults: Consult Orders 11/21/18 17:51 Consult - Cardiology NOW Consulting Provider: STEPHANIE HANNAH Physician Instructions: Reason For Exam: chest pain, palpitations Does pt have current spice mixer?: Patience Physical Exam - Vital Signs Vital Signs: Vital Signs - Last 24 Hrs Temp Pulse Pulse Pulse Resp BP BP 11/22/18 08:00 97.8 F 70 18 125/76 11/21/18 20:53 97.7 F 73 20 136/80 11/21/18 20:09 69 11/21/18 17:43 63 16 131/81 11/21/18 17:30 97.8 F 69 18 132/78 11/21/18 16:42 71 16 134/67 11/21/18 15:49 71 16 146/88 11/21/18 15:03 98.1 F 77 16 141/92 Pulse Ox 11/22/18 08:00 98 11/21/18 20:53 97 11/21/18 20:09 11/21/18 17:43 96 11/21/18 17:30 99 11/21/18 16:42 96 11/21/18 15:49 97 11/21/18 15:03 98 - General General Appearance: Alert, Oriented x3, Cooperative, No acute distress Limitations: No limitations - Head Head exam: Atraumatic, Normal inspection - Eye Eye exam: Normal appearance, PERRL. negative: Conjunctival injection, Scleral icterus - ENT ENT exam: Normal exam, Mucous membranes moist Ear exam: Normal external inspection Nasal Exam: Normal inspection Mouth exam: Normal external inspection - Neck Neck exam: Normal inspection, Full ROM. negative: Tenderness - Respiratory Respiratory exam: Normal lung sounds bilaterally. negative: Respiratory distress, Rhonchi, Stridor, Wheezes - Cardiovascular Cardiovascular Exam: Regular rate, Normal rhythm, Normal heart sounds Peripheral Pulses: 2+: Radial (R), Radial (L) - GI/Abdominal GI/Abdominal exam: Soft. negative: Tenderness - Rectal Rectal exam: Deferred - exam: Deferred - Extremities Extremities exam: Normal inspection, Full ROM, Normal capillary refill. negative: Pedal edema, Tenderness - Back Back exam: Denies: CVA tenderness (R), CVA tenderness (L) - Neurological Neurological exam: Alert, Oriented X3 - Psychiatric Psychiatric exam: Normal affect, Normal mood. negative: Agitated, Anxious - Skin Skin exam: Dry, Intact, Normal color, Warm. negative: Cyanosis, Diaphoretic, Erythema, Mottled Hospitalization - Hospitalization Admission Diagnosis: chest pain with palpitations - Problem List/Discharge Diagnosis (1) Chest pain Current Visit: Yes Status: Acute Base Code: R07.9 - CHEST PAIN, UNSPECIFIED Comment: 11/22/18: Patient reports intermittent substernal chest pain with palpitations -Cardiology consult: Dr. Hannah to follow-up with patient outpatient and complete ECHO outpatient -Negative troponin x 3 -EKG unchanged -Chest x-ray negative for acute cardiopulmonary process -Cardiac montior had no significant events -VS WNL (2) Palpitations Current Visit: Yes Status: Acute Base Code: R00.2 - PALPITATIONS Comment: 11/22/18: -school lunch monitor did not see any events during hospitalization -Cardiology consult with Dr. Hannah, to see patient outpatient -Troponin negative x 3 -Encouraged patient to continue cutting out caffeine from his diet (3) Contraindication to venous thromboembolism (VTE) prophylaxis Current Visit: Yes Status: Acute Base Code: Z53.09 - PROC/TRTMT NOT CARRIED OUT BECAUSE OF CONTRAINDICATION Comment: 11/22/18: Moderate risk due to hospitalization -Patient to continue home dose of Xarelto (4) Full code status Current Visit: Yes Status: Acute Base Code: Z78.9 - OTHER SPECIFIED HEALTH STATUS Comment: 11/22/18: Patient a full code this admission - Hospitalization Course Disposition: Home, Self-Care Hospital Course: 48 year old male patient presents to ED with complaints of intermittent substernal chest pain and palpitations. Patient states he is currently a patient of Dr. Hannah and has been undergoing a workup for similar symptoms. Patient states he was instructed to cut out caffeine and has noted slight improvement in the palpitations since doing that. Patient reports a history of cardiomyopathy that was diagnosed 10 years ago. Patient's last ECHO was 2 years ago. He has also had a cardiac cath with no stent placement. Patient reports occasional shortness of breath with the palpitations. Denies any radiation of the pain, nausea, vomiting, or sweating. Patient also reports a history of a CVA (currently on xarelto), ex-smoker, HTN, hyperlipidemia, inguinal hernia repair, and a recent TURP 2 weeks ago. PCP: Dr. Nelsy Brown ED Course: EKG - Rate 70, sinus with ventricular bigeminy Chest x-ray Cr 1.6 (normal to his baseline), troponin 0.01 11/22/18: Patient A&O x 4, sitting comfortably in chair. Patient reports mild substernal pressure 2/10 at this time. Denies any radiation of the pain. States he has continued to have intermittent palpitations since admission with no events noted on telemetry. Serial troponins negative. Cardiology consult with Dr. Hannah who is planning to complete ECHO outpatient and follow-up with the patient in the office next week. 2 UPDATE: Patient has remained stable. No concerns at this time. Troponins neg x 3, no events on site monitor, VS WNL. Patient to follow-up with cardiology (Dr. Hannah) outpatient. Procedures: Imaging and X-Rays 11/21/18 15:28 CHEST 2 VIEWS [RAD] Stat Cardiology Procedures 11/21/18 15:04 [facility] NOW 11/21/18 15:15 EKG ONCE 11/21/18 17:51 [facility] .Continuous EKG QDX2@0600 11/22/18 08:00 Echocardiogram 2D - Complete ONCE Abnormal Labs: Abnormal Lab Results 11/21/18 11/21/18 Range/Units 15:13 21:57 Chloride 96 L (98-107) mmol/L BUN 36 H (6-20) mg/dL Creatinine 1.6 H (0.7-1.2) mg/dL POC Glucose 198 H (70-110) mg/dL Random Glucose 207 H (74-109) mg/dL Calcium 11.0 H (8.6-10.0) mg/dL Condition at Discharge: (1) Good Discharge Medications - Discharge Medications Home Medications: Ambulatory Orders Atorvastatin Calcium 40 mg PO QD tab 04/28/16 [Last Taken 11/21/18] Carvedilol 12.5 mg PO BID tab 04/28/16 [Last Taken 11/21/18] Furosemide [Lasix] 20 mg PO DAILY #90 tablet 05/10/16 [Last Taken 11/21/18] Tamsulosin HCl [Flomax] 1 cap PO DAILY 09/16/18 [Last Taken 11/21/18] Glipizide 1 tab PO BID 10/05/18 [Last Taken 11/21/18] Meclizine HCl 25 mg PO BID 11/21/18 [Last Taken 11/20/18] Discharge Plan - Discharge Instructions Activity at Discharge: Increase Activity as Tolerated Diet at Discharge: Regular Diet Instructions: Chest Pain (DC), Heart Palpitations (DC) Additional Instructions: 2 Activity: Increase Activity as Tolerated 2 Diet: Regular Diet 2 Consults: [] 2 Follow Up: []DR HANNAH 11/27/17 AT 1PM 2 Dressing/Wound Care: (Type) (Change) 2 Additional: [] -Follow-up with Dr. Hannah as scheduled -Return for any worsening chest pain or new symptoms ECHOCARDIOGRAM 11/25/17 AT 11AM Quality Measures - Quality Measures Quality Measures: Documentation of Current Medications in Medical Record, Screening for High Blood Pressure and F/U Documented - Current Medications Quality Measure: Measure #130: Documentation of Current Medications Documentation of Current Medications: <Current Medications Documented/Reviewed> [G8427] - Blood Pressure Screening Quality Measure: Screening for High Blood Pressure and Follow-Up Documented Does Patient Have Any of the Following: Active Dx of HTN Blood Pressure Classification: Pre-Hypertensive BP Reading Systolic Measurement: 131 Diastolic Measurement: 81 Screening for High Blood Pressure: Patient Exclusion, Hx of HTN [G9744] - Elder Abuse Suspicion Index EASI Reference Information: Bernabe MCGEE, Boris Robles, Silvia D, Noemi Higgins.Development and validation of a tool to assist physicians identification of elder abuse: The Elder Abuse Suspicion Index (EASI ). Journal of Elder Abuse and Neglect, 2008; 20 (3): 276-300.
[2018-11-22] MEDS ORDERED: RIVAROXABAN 20 MG TABLET PO SCH (17:30)
--- NOTE | 2018-11-22 21:57 | Cardiology Consult ---
DATE: 11/22/2018 CONSULTING PHYSICIAN: STEPHANIE SEARS M.D. REASON FOR CONSULTATION: CHEST PAIN AND PALPITATIONS. Mr. Loredo is 48 years old with history of nonischemic cardiomyopathy, CVA, diabetes mellitus, and hypertension, who presents to [facility] on 11/21/2018 with complaints of substernal chest pressure. He has been having similar symptoms for some time but states in the past week it has been more intensive. He states he is having chest pressure without activity and frequent palpitations. In addition, he feels like his sinus is congested and he has been having some lightheadedness and dizziness. He has remote history of cardiomyopathy with an ejection fraction of 20%. Last echocardiogram, in April of 2017, demonstrated an ejection fraction of 45 to 50%. Around the time of his initial cardiomyopathy, he developed CVA with left-sided weakness was given tPA for his stroke. He is a previous smoker but refrained since his stroke. Recently, a Holter monitor was placed on 09/13/2018 demonstrating 10.2% PVCs and 8.9% PACs. He recently underwent urological procedure for urinary retention. PAST MEDICAL HISTORY INCLUDES: 1. Nonischemic cardiomyopathy. 2. Stroke. 3. Diabetes mellitus. 4. Hypertension. 5. Urinary retention. PAST SURGICAL HISTORY: Noncontributory. MEDICATIONS CURRENTLY INCLUDE: Atorvastatin 40 mg every h.s. Carvedilol 12.5 mg b.i.d. Furosemide 20 mg daily Glipizide 5 mg b.i.d. Glyburide 5 mg b.i.d. Lisinopril 20 mg daily Metformin 500 mg t.i.d. ALLERGIES: PENICILLIN CAUSING HIVES. SOCIAL HISTORY: He works doing light construction. He denies tobacco or alcohol use at this time. PHYSICAL EXAM: GENERAL: He is afebrile. VITAL SIGNS: Blood pressure 131/81. Pulse 63. Respirations 16. He is 96% on room air. His BMI is 28.3. LUNGS: Clear to auscultation. CARDIAC EXAM: Normal. ABDOMEN: Soft. EXTREMITIES: Reveal no edema. VASCULAR EXAM: Normal carotid upstrokes without bruits. LABORATORY: His white count is 7.7. Hemoglobin 16.4. Platelets 224,000. INR 1.1. Sodium 139. Potassium 4.2. BUN 36. Creatinine 1.6. AST 18. ALT 35. Troponins are negative x2. ECG: Demonstrates sinus rhythm with a PVC at a rate of 70 beats per minute. IMPRESSION/PLAN: Mr. Loredo presents with atypical chest pain and palpitations. He has history of nonischemic cardiomyopathy, which had improved with his current medical regimen. On discharge, will schedule for repeat echocardiogram to assess his ejection fraction. Will plan to see him in outpatient in one week and discuss initiation of antiarrhythmic drug therapy due to his frequent symptomatic palpitations. No further cardiac testing is required during this hospital admission. He has had previous cardiac catheterization demonstrating no obstructive coronary artery disease. JOB NUMBER: [id number] MTDD
== END 2018-11-22 12:37 | disposition home or self-care (01) ==
LOC: ER 15:03 → MEDSURG 17:26
PROVIDERS: ADMIT Internal Medicine; ATTEND Internal Medicine
DX: R07.9 Chest pain, unspecified (principal); R00.2 Palpitations; I10 Essential (primary) hypertension; G72.9 Myopathy, unspecified; E11.9 Type 2 diabetes mellitus without complications; Z95.5 Presence of coronary angioplasty implant and graft; Z86.14 Personal history of Methicillin resistant Staphylococcus aureus infection; Z86.711 Personal history of pulmonary embolism; Z87.891 Personal history of nicotine dependence
CPT/HCPCS: 99285 ×2; 96374; 83735; 85025; 85730; 85610; 80053; 36416 ×2; 82948 ×2; 84484 ×2; 71046; 93005 ×2; 93010; G0378 ×2; 99220